=== PATIENT | female | born 1995 | race Hispanic/Latino ===

== ENCOUNTER 2020-05-22 03:57 | Inpatient (IN) | payer BC, OTHER ==
[2020-05-21 16:07] LABS: Absolute Lymphocytes (CBC) 1.7 K/uL (0.7-4.9); Basophils % 0.4 % (0-1.3); Hematocrit 27.3 % (36.0-45.0); Lymphocytes % 20.1 % (15.3-44.8); MPV 10.2 fL (7.6-11.3); RBC Red Blood Cell Count 4.26 M/uL (3.86-4.86)
[2020-05-21 16:10] LABS: Protime INR 0.96
[2020-05-21 18:39] LABS: Blood Morphology Comment NOTED (NOT SEEN); Hypochromasia 1+; Platelet Estimate ADEQ; Polychromasia SLIGHT; White Blood Cell Scan OK (OK)
[2020-05-21 18:40] LABS: Urine Appearance CLEAR; Urine Bilirubin NEGATIVE (NEG); Urine Blood NEGATIVE (NEG); Urine Color YELLOW; Urine Glucose NEGATIVE (NEG); Urine Protein NEGATIVE (NEG); Urine Specific Gravity <=1.005 (1.005-1.030); Urine Urobilinogen 0.2 mg/dL (0.2-1.0)
[2020-05-21 19:21] LABS: Urine Microscopic Reflex ORDER UMIC
[2020-05-21 20:23] LABS: Urine Bacteria 20-50 /HPF (<20); Urine RBC <5 /HPF (NONE SEEN)
[~2020-05-22 03:57] MED LIST: CEFAZOLIN/SWI 2gm 2 GM/20 ML SYR IVP SCH
--- OUTSIDE RECORDS SUMMARY | 2020-05-22 03:59 | XMS REPORT | Continuity of Care Document ---
:1995 Author Organization [facility] Care Team Providers Name Role Phone [facility] Unavailable Un available Problems Problem Status Onset Classification Date Comments Sourc e Date Reported CONTRACTIONS Active 10/24/19 The [facility] [place] Discharge 10/24/19 10/30/2015 The Diagnosis: [address] [place] [id number] Abdominal pain affecting Discharge 10/24/19 10/30/2015 The Diagnosis: 16 [place] Ruptured, membranes, premature CHILD Active 01/30/20 The [facility] [place] Patient Resolved 01/24/20 Problem 10/30/2015 The currently 15 [place] (finding) Medications Medication Details Route Status Patient Ordering Order Source Instructions Provider Date Ascorbic Acid 120 1 tab, PO, Active The MG / Docusate Daily, # [address] [facility] nds Sodium 50 MG / tab, 0 Folic Acid 1 MG / Refill(s) Iron Carbonyl 90 MG / Vitamin B 12 0.012 MG Oral Tablet [Ferralet 90] Acetaminophen 300 1 tab, PO, Active The MG / Codeine Q4H, PRN Pain, 2015 [place] Phosphate 30 MG X 7 day, # 42 Oral Tablet tab, 0 [Tylenol with Refill(s) Codeine #3] ibuprofen 800 mg 800 mg = 1 Active T he oral tablet tab, PO, Q8H, 2015 [facility] nds PRN Pain, Take with food, # 60 tab, 1 Refill(s) Docusate Sodium Notes: (Same No Longer 10/25/ H The 100 MG Oral as: Colace) Active 2015 [place] Capsule [Colace] (Do Not Crush) 1 tab, Route: No Longer The Multivitamins oral PO, Drug Form: Active 2015 [place] tablet TAB, Dosing Weight 102.273, kg, Daily, Start date: 10/25/15 9:00:00 CDT, Duration: 30 day, Stop date: 11/23/15 9:00:00 CDT Gentamicin Sulfate Notes: TIME Inactive The (LONGTERM) CRITICAL 2015 [place] MEDICATION (Same as Garamycin) Ampicillin Notes: (Same Inactive The as: [place]) [place] MEDICATION WASTE Product Size: 2000 mg Product Wasted: ___ mg Gentamicin Sulfate Notes: TIME Inactive The (LONGTERM) CRITICAL 2015 [place] MEDICATION (Same as Garamycin) fentaNYL (ANES) Route: IV, Inactive T he Drug form: [place] INJ, ONCE, Stop date: 10/25/15 0:12:00 CDT Pitocin (ANES) Route: IV, Inactive Th e Drug form: 2015 [place] SOLN, ONCE, Stop date: 10/25/15 0:12:00 CDT morphine Sulfate Route: Inactive The (ANES) EPIDURAL, Drug 2015 form: INJ, ONCE, Stop date: 10/25/15 0:08:00 CDT bupivacaine (ANES) Route: Inactive T he EPIDURAL, Drug 2015 Form: INJ, ONCE, Stop date: 10/25/15 0:08:00 CDT ondansetron (ANES) Route: IV, Inactive H The Drug form: [place] INJ, ONCE, Stop date: 10/25/15 0:08:00 CDT succinylcholine Route: IV, Inactive T he (ANES) Drug form: [place] INJ, ONCE, Stop date: 10/25/15 0:03:00 CDT fentaNYL (ANES) Route: Inactive The EPIDURAL, Drug 2015 form: INJ, ONCE, Stop date: 10/25/15 0:03:00 CDT propofol (ANES) Route: IV, Inactive T he Drug form: [place] INJ, ONCE, Stop date: 10/25/15 0:03:00 CDT lidocaine (ANES) Route: IV, Inactive The Drug form: 2015 [place] INJ, ONCE, Stop date: 10/25/15 0:03:00 CDT Ibuprofen Notes: (Same No Longer The as: Abida) Active [place] "Do Not Crush" Take with food. 0.5 ML Bordetella Notes: (Tdap ) No Longer 10/24 The pertussis For Adolecent Active 2015 [place] filamentous and Adult use hemagglutinin For IM Use. vaccine, Same as: inactivated 0.01 Adacel (Tdap) MG/ML / Bordetella pertussis fimbriae 2/3 vaccine, inactivated 0.01 MG/ML / Bordetella pertussis pertactin vaccine, inactivated 0.006 MG/ML / Bordetella pertussis toxoid vacci Naloxone Notes: Same as Inactive The Narcan 2015 [place] Diphenhydramine Notes: (Same No Longer 10/24/ H The as: Benadryl) Active 2015 [place] Promethazine 6.25 mg, 25 No Longer Th e mL, Route: Active 2015 [place] IVPB, Drug form: SOLN, Q6H, Dosing Weight 102.273, kg, PRN Nausea & Vomiting, Start date: 10/24/15 23:57:00 CDT, Duration: 24 hr, Stop date: 10/25/15 23:56:00 CDT Ondansetron Notes: (Same No Longer Th e as: Zofran) Active 2015 [place] MEDICATION WASTE Product Size: 4 mg Product Wasted: ___ mg Oxycodone Notes: (Same No Longer The Hydrochloride 5 MG as: Active 2015 [facility] and Oral Tablet Roxicodone) Nalbuphine Notes: (Same No Longer The As: Nubain) Active 2015 [place] Meperidine Notes: (Same No Longer The as: Demerol) Active 2015 [place] "Use Precaution in Elderly, Seizure disorders, and Renal impairment&quo t; Acetaminophen Notes: Max No Longer Th e acetaminophen Active 2015 [place] 4000 mg/day (4 gm/day). (Same as: Tylenol Extra Strength) Ketorolac 4 days No Longer The MEDICATION Active 2015 [place] WASTE Product Size: 30 mg Product Wasted: ___ mg Acetaminophen 325 Notes: (Same No Longer The MG / Hydrocodone as: [place] Active 2015 [facility] Bitartrate 5 MG 325/5) Do not Oral Tablet exceed 4gm/day of acetaminophen. Acetaminophen 325 Notes: Do not No Longer The MG / Hydrocodone exceed 4gm/day Active 2015 [place] Bitartrate 10 MG of Oral Tablet acetaminophen. (Same as: [place] 325/10) Lactated Ringers 1,000 mL, No Longer The IV 1,000 mL Rate: 100 Active 2015 [place] ml/hr, Infuse over: 10 hr, Route: IV, Dosing Weight 102.273 kg, Total Volume: 1,000, Start date: 10/24/15 23:46:00 CDT, Duration: 30 day, Stop date: 11/23/15 23:45:00 CDT Acetaminophen Notes: Do not No Longer The exceed 4 Active 2015 [place] gm/day. (Same as: Tylenol) Simethicone Notes: (Same No Longer Th e as: Mylicon) Active 2015 [place] zolpidem Notes: (Same No Longer The As: Ambien) Active 2015 [place] Benzocaine / Notes: Same No Longer Th e Menthol as: Cepacol Active 2015 [place] Oxytocin 0.06 Notes: Pitocin No Longer 10/24/ H The UNT/ML Injectable 30 units in LR Active 2015 [place] Solution 500 mL lanolin topical 1 appl, Route: No Longer The cream TOP, PRN, Drug Active 2015 [place] form: OINT, PRN Other -See Comment, Start date: 10/24/15 23:46:00 CDT, Duration: 30 day, Stop date: 11/23/15 23:45:00 CDT Bisacodyl Notes: (Same No Longer The As: Dulcolax, Active 2015 [place] Bisco-Lax) lidocaine (ANES) Route: Inactive The EPIDURAL, Drug 2015 [place] form: INJ, ONCE, Stop date: 10/24/15 23:43:00 CDT ceFAZolin (ANES) Route: IV, Inactive The Drug form: [place] INJ, ONCE, Stop date: 10/24/15 23:43:00 CDT acetaminophen Route: IV, No Longer Th e (ANES) (ANES) Drug form: Active 2015 [place], Start date: 10/24/15 23:31:00 CDT, Stop date: 10/25/15 0:31:00 CDT Lactated Ringers Route: IV, No Longer The Injection IV Total Volume: Active 2015 Tonenadine ands (ANES) (ANES) 400, Start date: 10/24/15 23:12:00 CDT, Stop date: 10/25/15 0:12:00 CDT Cefazolin Notes: Same Inactive The as: Ancef 2015 [place] Morphine Notes: (Same No Longer The as:MORPhine Active 2015 [place] Sulfate) Ondansetron Notes: (Same No Longer Th e as: Zofran) Active 2015 [place] MEDICATION WASTE Product Size: 4 mg Product Wasted: ___ mg Metoclopramide Notes: (Same No Longer The as: Reglan) Active 2015 [place] Penicillin G 2,500,000 Inactive The unit, 50 mL, 2015 [place] Route: IVPB, Drug form: INJ, ABXQ4H, Dosing Weight 102.273, kg, Start date: 10/24/15 13:00:00 CDT Penicillin G Notes: (Same Inactive Th e Potassium [id number] as: Pfizerpen) 2015 [place] UNT/ML Injectable Solution MEDICATION WASTE Product Size: 5,000,000 unit Product Wasted: ___ unit Carboprost Notes: (Same No Longer The As: Hemabate) Active 2015 [place] Citric Acid / Notes: (Same No Longer The sodium citrate As: Bicitra) Active 2015 [facility] Methylergonovine Notes: (Same No Longer The as:Methergine) Active 2015 [place] Misoprostol Notes: (Same No Longer Th e as:Cytotec) Active 2015 [place] Take with food Famotidine Notes: (Same Inactive The as: Pepcid) [place] Can be dilute in 5-10cc NS IVP: Slow IV push over at least 2 minutes. 1 oral 1 cap, PO, Active Th e capsule Daily, 0 2015 [place] Refill(s) Phenylephrine Notes: Same No Longer T he as: Active 2015 [place] Dimitry-Synephrine Ephedrine Notes: (Same No Longer The as: ePHEDrine Active 2015 [place] Sulfate) Hydromorphone Notes: (Same No Longer The as: Active 2015 [place] Naropin-Dilaud id) Oxytocin 0.06 Notes: Pitocin Inactive The UNT/ML Injectable 30 units in LR 2015 [place] Solution 500 mL Terbutaline Notes: DO No Longer The NOT USE IN Active 2015 [place] PEAN[place] AREA (Same As: Brethine) Lidocaine Notes: (Same No Longer The Hydrochloride 10 as: Xylocaine) Active 2015 [place] MG/ML Injectable Solution Meperidine Notes: (Same No Longer The as: Demerol) Active 2015 [place] "Use Precaution in Elderly, Seizure disorders, and Renal impairment&quo t; Ondansetron Notes: (Same No Longer Th e as: Zofran) Active 2015 [place] MEDICATION WASTE Product Size: 4 mg Product Wasted: ___ mg Nalbuphine Notes: (Same No Longer The As: Nubain) Active 2015 [place] Oxytocin 0.06 Notes: Pitocin No Longer 10/23/ H The UNT/ML Injectable 30 units in LR Active 2015 [place] Solution 500 mL Calcium Chloride 1,000 mL, No Longer The 0.0014 MEQ/ML / 1,000 ml/hr, Active 2015 [place] Potassium Chloride Infuse Over: 1 0.004 MEQ/ML / hr, Route: IV, Sodium Chloride 1,000, Drug 0.103 MEQ/ML / form: INJ, Sodium Lactate ONCE, Dosing 0.028 MEQ/ML Weight 102.273 Injectable kg, Start Solution date: 10/24/15 8:10:00 CDT, Stop date: 10/24/15 8:10:00 CDT, Bolus for regional anesthesia per unit protocol Lactated Ringers 1,000 mL, No Longer The IV 1,000 mL Rate: 125 Active 2015 [place] ml/hr, Infuse over: 8 hr, Route: IV, Dosing Weight 102.273 kg, Total Volume: 1,000, Start date: 10/24/15 8:10:00 CDT, Duration: 30 day, Stop date: 11/23/15 8:09:00 CDT Allergies, Adverse Reactions, Alerts Substance Category Reaction Severity Reaction Status Date Comments S ource type Reported Latex Assertion Drug Active The allergy [place] Immunizations No Data Provided for This Section Results Order Name Results Value Reference Date Interpretation Comments Randee rce Range HEMATOLOGY Hct 24.8 36.0 - 10/24 The 48.0 [place] HEMATOLOGY Hgb 7.7 12.0 - 10/24 The [place] URINE AND UA <=1.0 0.1 - 1.0 10/23 The STOOL Urobilinogen mg/dL /2015 [place] URINE AND UA Sq Epi Many /LPF Few /LPF 10/23 The STOOL /[place] URINE AND UA WBC 27 0 - 5 10/23 The STOOL /2015 [place] URINE AND UA RBC >182 0 - 2 10/23 The STOOL /[place] URINE AND UA Bili Negative Negative 10/23 The STOOL *NA* /2015 [place] (10/24/15 8:50 AM) URINE AND UA Leuk Est Large Negative 10/23 The STOOL *ABN* /2015 [place] (10/24/15 8:50 AM) URINE AND UA Nitrite Negative Negative 10/23 The STOOL (10/24/15 8:50 AM) /2015 [facility] ds URINE AND UA Blood Large Negative 10/23 The STOOL *ABN* /2015 [place] (10/24/15 8:50 AM) URINE AND UA Mucus Few /LPF None Seen 10/23 The STOOL /LPF /2015 [place] URINE AND UA [place] Yeast Few /HPF None Seen 10/23 The STOOL /HPF /2015 [place] URINE AND UA Protein 100 mg/dL Negative 10/23 The STOOL mg/dL /[place] URINE AND UA pH 6.5 5.0 - 8.0 10/23 The STOOL /[place] URINE AND UA Ketones Negative Negative 10/23 The STOOL mg/dL mg/dL /2015 [place] URINE AND UA Glucose Negative Negative 10/23 The STOOL mg/dL mg/dL /2015 [place] URINE AND UA Turbidity Slight Clear 10/23 The STOOL *ABN* /2015 [place] (10/24/15 8:50 AM) URINE AND UA Color Red Yellow 10/23 The STOOL *ABN* /2015 [place] (10/24/15 8:50 AM) URINE AND UA Spec Grav 1.019 <=1.030 10/23 The STOOL /2015 [place] BLOOD BANK ABO/Rh A POS 10/23 The RESULTS /2015 [place] BLOOD BANK Antibody Scrn Negative 10/23 The RESULTS (10/24/15 8:33 AM) [facility] BLOOD BANK Rhig Reqd See Note 1 10/23 Result The RESULTS (10/24/15 8:33 AM) Comment: [place] 10/24/2015 10:33 CEPRASEK<b r/>This patient is not a candidate for Rh(O)D immune globulin. CHEM PANEL Uric Acid 4.4 2.5 - 7.0 10/23 The [place] CHEM PANEL AST 28 0 - 37 10/23 The [place] CHEM PANEL ALT 14 0 - 65 10/23 The [place] HEMATOLOGY MCHC 31.6 32.0 - 10/23 The 36.0 [place] HEMATOLOGY MCH 22.9 27.0 - 10/23 The 31.0 [place] HEMATOLOGY MCV 72.5 80.0 - 10/23 The 98.0 [place] HEMATOLOGY MPV 11.9 7.4 - 10.4 10/23 The [place] HEMATOLOGY Platelet 128 133 - 450 10/23 The [place] HEMATOLOGY RDW 20.6 11.5 - 10/23 The 14.5 [place] HEMATOLOGY Hct 33.3 36.0 - 10/23 The 48.0 [place] HEMATOLOGY Hgb 10.5 12.0 - 10/23 The 16.0 [place] HEMATOLOGY RBC 4.59 4.20 - 0607 The 5.40 /2015 [place] HEMATOLOGY WBC 13.3 3.7 - 10.4 10/23 The [place] HEMATOLOGY Basophils 0.2 0.0 - 1.0 10/23 The [place] HEMATOLOGY Eosinophils 0.2 0.0 - 4.0 10/23 The [place] HEMATOLOGY Monocytes 4.2 2.0 - 12.0 10/23 The [place] HEMATOLOGY Lymphocytes 10.8 20.0 - 10/23 The 40.0 [place] HEMATOLOGY Monocytes # 0.6 0.0 - 0.8 10/23 The [place] HEMATOLOGY Lymphocytes # 1.4 1.0 - 5.5 10/23 Th e /2015 [place] HEMATOLOGY Segs-Bands # 11.2 1.5 - 8.1 10/23 The [place] HEMATOLOGY Segs 84.6 45.0 - 10/23 The 75.0 [place] HEMATOLOGY Microcyte 2+ None Seen 10/23 The *ABN* /2015 [place] (10/24/15 8:33 AM) IMMUNOLOGY Hep Bs Ag Negative Negative 10/23 The *NA* [place] (10/24/15 8:33 AM) IMMUNOLOGY HIV. Negative Negative 10/23 The *NA* /2015 [place] (10/24/15 8:33 AM) IMMUNOLOGY Treponemal Scr Non Reactive Non 10/23 M H The *NA* Reactive /2015 [place] (10/24/15 8:33 AM) BODY FLUIDS Amnisure ROM Negative Negative 10/23 [facility] e (10/24/15 8:05 AM) [facility] ds Pathology Reports No Data Provided for This Section Diagnostic Reports No Data Provided for This Section Consultation Notes No Data Provided for This Section Discharge Summaries No Data Provided for This Section History and Physicals No Data Provided for This Section Vital Signs Vital Sign Value Date Comments Source Heart Rate 92 10/27/2015 The [place] Respitory Rate 16 10/27/[address] [facility] nds Temperature Oral (F) 98.0 F 10/27/2015 [facility] Systolic (mm Hg) 120 10/27/2015 [facility] Diastolic (mm Hg) 75 10/27/2015 [facility] Temperature Oral (F) 98.3 F 10/27/2015 [facility] Systolic (mm Hg) 131 10/27/2015 [facility] Diastolic (mm Hg) 75 10/27/2015 The [facility] Heart Rate 102 10/27/2015 The [place] Respitory Rate 18 10/27/[address] [facility] nds Respitory Rate 16 10/26/[address] [facility] nds Systolic (mm Hg) 78 10/26/2015 The [facility] Heart Rate 89 10/26/2015 The [place] Temperature Oral (F) 98.0 F 10/26/2015 [place] Diastolic (mm Hg) 78 10/26/2015 The [facility] BMI Calculated 39.94 10/24/[address] [facility] nds Weight 102.273 10/24/2015 The [place] Height 160.02 cm 10/24/2015 The [place] Encounters Location Location Encounter Encounter Reason Attending ADM DC Stat us Source Details Type Number For Provider Date Date Visit [facility] [id number] T[place] 10/23 10/26 The Manoj Ferreren /2015 [facility] Procedures No Data Provided for This Section Assessment and Plan Assessment and Plan Date Source Extracted from:Title: Progress Note * 10/27/2015 [facility] Author: Maru Rivera NP Date: 10/26/15 Impression and Plan The patient was seen and examined by me with the resident/[employer]/PA and I agree with the History/Exam documented. Routine care. D/c home tomorrow. F/u in office in 4 weeks an d prn. Plan of Care No Data Provided for This Section Social History Social History Date Source Social History TypeResponse 10/24/2015 [facility] [place] Smoking Status Never smoker; Ready to change: No; Danisha rns about tobacco use in household: No; Exposure to Tobacco Smoke None; Cigarette Smoking Last 365 Days No; Reg Smoking Cessation Counseling No Family History No Data Provided for This Section Advance Directives No Data Provided for This Section Functional Status No Data Provided for This Section
--- OUTSIDE RECORDS SUMMARY | 2020-05-22 04:00 | XMS REPORT | Continuity of Care Document ---
:1995 Author Organization [facility] t Address [address] [place] [address] Care Team Providers Name Role Phone Radiology Attending Clinician Unavailable Maricel Holt Attending Clinician Maricel Holt Admitting Clinician Problems Condition Condition Condition Status Onset Resolution Last Treating Co mments Source Name Details Category Date Date Treatment Clinician Date CONTRACTIO Diagnosis Active 2015-10-24 Memoria NS 10-23 07:12:00 l 07:00: Manoj CONTRACTIO 00 NS Active 6 [facility] CHILD Diagnosis Active 2015-08-01 Mem oria 01-29 17:26:00 l CHILD 00:00: Manoj 00 Active 01/29/2015 [facility] Discharge Problem 2015-10-30 2015-10-30 Memoria Diagnosis: 10-23 01:43:29 01:43:29 l Abdominal 05:00: Hamer pain Discharge 00 affecting Diagnosis: Abdominal pain affecting 10/24/2015 10/30/2015 [facility] Discharge Problem 2015-10-30 2015-10-30 Memoria Diagnosis: 10-23 01:43:29 01:43:29 l Ruptured, 05:00: Manoj membranes, Discharge 00 premature Diagnosis: Ruptured, membranes, premature 10/24/2015 10/30/2015 [facility] History of Past Illness Condition Condition Condition Status Onset Resolution Last Treating Co mments Source Name Details Category Date Date Treatment Clinician Date Patient Problem Resolve 2015-10-302015-10-30 Memoria currently d 9 01:43:29 01:43:29 l Patient 00:00: Vani nn (finding) currently 00 (finding) Resolved 01/23/2015 Problem 10/30/2015 [facility] Allergies, Adverse Reactions, Alerts Allergy Allergy Status Severity Reaction(s) Onset Inactive Treating Comm ents Source Name Type Date Date Clinician Latex Latex Active Marlon Aranda Social History Smoking Status Start Date Stop Date Source Social History [facility] Medications Ordered Filled Start Stop Current Ordering Indication Dosage Frequency Signature Comments Components Source Medication Medication Date Date Medication? Clinician (SIG) Name Name Ascorbic Yes 1 tab, PO, Mem oria Acid 120 MG 6- Daily, # l / Docusate 17:57: 30 tab, 0 He rmann Sodium 50 00 Refill(s) MG / Folic Acid 1 MG / Iron Carbonyl 90 MG / Vitamin B 12 0.012 MG Oral Tablet [Ferralet 90] Acetaminoph Yes 1 tab, PO, Memoria en 300 MG / 10-25 Q4H, PRN l Codeine 17:55: Pain, X 7 Vani nn Phosphate 00 day, # 42 30 MG Oral tab, 0 Tablet Refill(s) [Tylenol with Codeine #3] ibuprofen Yes 800 mg = 1 Me moria 800 mg oral 09 tab, PO, l tablet 17:55: Q8H, PRN Manoj 00 Pain, Take with food, # 60 tab, 1 Refill(s) Docusate No Notes: Memoria Sodium 100 6-09 (Same as: l MG Oral 03:29: Colace) Hamer Capsule 00 (Do Not [Colace] Crush) No 1 tab, Memoria Multivitami 10-24 Route: PO, l ns oral 14:00: Drug Form: Herm brian tablet 00 TAB, Dosing Weight 102.273, kg, Daily, Start date: 10/25/15 9:00:00 CDT, Duration: 30 day, Stop date: 11/23/15 9:00:00 CDT Gentamicin No Notes: Memor ia Sulfate 6-08 TIME l (FCI) 14:00: CRITICAL Hamer 00 MEDICATION (Same as Garamycin) Ampicillin No Notes: Memor ia 6-08 (Same as: l 06:00: [place]) MEDICATION WASTE Product Size: 2000 mg Product Wasted: ___ mg Gentamicin No Notes: Memor ia Sulfate - TIME l (FCI) 05:31: CRITICAL Hamer 00 MEDICATION (Same as Garamycin) fentaNYL No Route: IV, Mem oria (ANES) 10-24 Drug form: l 05:12: INJ, ONCE, Stop date: 10/25/15 0:12:00 CDT Pitocin No Route: IV, Fab lilian (ANES) 10-24 Drug form: l 05:12: SOLN, Hamer ONCE, Stop date: 10/25/15 0:12:00 CDT morphine No Route: Memoria Sulfate 10-24 EPIDURAL, l (ANES) 05:08: Drug form: Vani nn 00 INJ, ONCE, Stop date: 10/25/15 0:08:00 CDT bupivacaine No Route: Fab lilian (ANES) 10-24 EPIDURAL, l 05:08: Drug Form: Manoj 00 INJ, ONCE, Stop date: 10/25/15 0:08:00 CDT ondansetron No Route: IV, Memoria (ANES) 10-24 Drug form: l 05:08: INJ, ONCE, Stop date: 10/25/15 0:08:00 CDT succinylcho No Route: IV, Memoria line (ANES) 10-24 Drug form: l 05:03: INJ, ONCE, Stop date: 10/25/15 0:03:00 CDT fentaNYL No Route: Memoria (ANES) 08 EPIDURAL, l 05:03: Drug form: Manoj 00 INJ, ONCE, Stop date: 10/25/15 0:03:00 CDT propofol No Route: IV, Mem oria (ANES) 10-24 Drug form: l 05:03: INJ, ONCE, Manoj 00 Stop date: 10/25/15 0:03:00 CDT lidocaine No Route: IV, Me moria (ANES) 10-24 Drug form: l 05:03: INJ, ONCE, Stop date: 10/25/15 0:03:00 CDT Ibuprofen No Notes: Memori a 6-08 (Same as: l 05:00: Motrin) "Do Not Crush" Take with food. 0.5 ML No Notes: Memoria Bordetella 10-24 (Tdap ) l pertussis 05:00: For Manoj Adolecent hemagglutin and Adult in vaccine, use For IM inactivated Use. Same 0.01 MG/ML as: Adacel / (Tdap) Bordetella pertussis fimbriae 2/3 vaccine, inactivated 0.01 MG/ML / Bordetella pertussis pertactin vaccine, inactivated 0.006 MG/ML / Bordetella pertussis toxoid vacci Naloxone No Notes: Memoria 6-08 Same as l 05:00: Narcan Diphenhydra No Notes: Fab lilian mine 08 (Same as: l 04:57: Benadryl) Promethazin No 6.25 mg, Me moria e 08 25 mL, l 04:57: Route: IVPB, Drug form: SOLN, Q6H, Dosing Weight 102.273, kg, PRN Nausea & Vomiting, Start date: 10/24/15 23:57:00 CDT, Duration: 24 hr, Stop date: 10/25/15 23:56:00 CDT Ondansetron No Notes: Fab lilian 08 (Same as: l 04:57: Zofran) MEDICATION WASTE Product Size: 4 mg Product Wasted: ___ mg Oxycodone No Notes: Memori a Hydrochlori 10-24 (Same as: l de 5 MG 04:57: Roxicodone Oral Tablet ) Nalbuphine No Notes: Memor ia 08 (Same As: l 04:57: Nubain) Meperidine No Notes: Memor ia 08 (Same as: l 04:57: Demerol) "Use Precaution in Elderly, Seizure disorders, and Renal impairment " Acetaminoph No Notes: Max Memoria en 10-24 acetaminop l 04:57: hen 4000 Hamer 00 mg/day (4 gm/day). (Same as: Tylenol Extra Strength) Ketorolac No 4 days Memor ia 10-24 l 04:57: MEDICATION Manoj WASTE Product Size: 30 mg Product Wasted: ___ mg Acetaminoph No Notes: Fab lilian en 325 MG / 10-24 (Same as: l Hydrocodone 04:46: [place] Vani nn Bitartrate 00 325/5) Do 5 MG Oral not exceed Tablet 4gm/day of acetaminop hen. Acetaminoph No Notes: Do M emoria en 325 MG / 10-24 not exceed l Hydrocodone 04:46: 4gm/day of Manoj Bitartrate 00 acetaminop 10 MG Oral hen. Tablet (Same as: [place] 325/10) Lactated No 1,000 mL, Fab lilian Ringers IV 10-24 Rate: 100 l 1,000 mL 04:46: ml/hr, Hamer Infuse over: 10 hr, Route: IV, Dosing Weight 102.273 kg, Total Volume: 1,000, Start date: 10/24/15 23:46:00 CDT, Duration: 30 day, Stop date: 11/23/15 23:45:00 CDT Acetaminoph No Notes: Do M emoria en 08 not exceed l 04:46: 4 gm/day. Manoj 00 (Same as: Tylenol) Simethicone No Notes: Fab lilian 10-24 (Same as: l 04:46: Mylicon) Manoj 00 zolpidem No Notes: Memoria 10-24 (Same As: l 04:46: Ambien) Hamer 00 Benzocaine No Notes: Memor ia / Menthol 10-24 Same as: l 04:46: Cepacol Manoj Oxytocin No Notes: Memoria 0.06 UNT/ML 10-24 Pitocin 30 l Injectable 04:46: units in Her collins Solution 00 LR 500 mL lanolin No 1 appl, Memoria topical 10-24 Route: l cream 04:46: TOP, PRN, Hamer 00 Drug form: OINT, PRN Other -See Comment, Start date: 10/24/15 23:46:00 CDT, Duration: 30 day, Stop date: 11/23/15 23:45:00 CDT Bisacodyl No Notes: Memori a 10-24 (Same As: l 04:46: Dulcolax, Bisco-Lax) lidocaine No Route: Memori a (ANES) 10-24 EPIDURAL, l 04:43: Drug form: Hamer 00 INJ, ONCE, Stop date: 10/24/15 23:43:00 CDT ceFAZolin No Route: IV, Me moria (ANES) 10-24 Drug form: l 04:43: INJ, ONCE, Hamer 00 Stop date: 10/24/15 23:43:00 CDT acetaminoph No Route: IV, Memoria en (ANES) 10-24 Drug form: l (ANES) 04:31: INJ, Start Vani nn 00 date: 10/24/15 23:31:00 CDT, Stop date: 10/25/15 0:31:00 CDT Lactated No Route: IV, Mem oria Ringers 10-24 Total l Injection 04:12: Volume: Vani nn IV (ANES) 00 400, Start (ANES) date: 10/24/15 23:12:00 CDT, Stop date: 10/25/15 0:12:00 CDT Cefazolin No Notes: Memori a 10-24 Same as: l 03:30: Ancef Manoj 00 Morphine No Notes: Memoria 10-24 (Same l 03:28: as:MORPhin e Sulfate) Ondansetron No Notes: Fab lilian 10-24 (Same as: l 03:28: Zofran) MEDICATION WASTE Product Size: 4 mg Product Wasted: ___ mg Metoclopram No Notes: Fab lilian dutch 10-24 (Same as: l 03:28: Reglan) Penicillin No 2,500,000 Me moria G -07 unit, 50 l 18:00: mL, Route: Hamer 00 IVPB, Drug form: INJ, ABXQ4H, Dosing Weight 102.273, kg, Start date: 10/24/15 13:00:00 CDT Penicillin No Notes: Memor ia G Potassium 6-07 (Same as: l [id number] 14:00: Pfizerpen) Herm brian UNT/ML 00 Injectable MEDICATION Solution WASTE Product Size: 5,000,000 unit Product Wasted: ___ unit Carboprost No Notes: Memor ia 6-07 (Same As: l 14:00: Hemabate) Hamer 00 Citric Acid No Notes: Fab lilian / sodium 6 (Same As: l citrate 14:00: Bicitra) Janes n 00 Methylergon No Notes: Fab lilian ovine 6- (Same l 14:00: as:Metherg Hamer 00 ine) Misoprostol No Notes: Fab lilian - (Same l 14:00: as:Cytotec Manoj 00 ) Take with food Famotidine No Notes: Memor ia 6-07 (Same as: l 14:00: Pepcid) Manoj 00 Can be dilute in 5-10cc NS IVP: Slow IV push over at least 2 minutes. 1 Yes 1 cap, PO, M emoria oral 07 Daily, 0 l capsule 13:33: Refill(s) Vani nn 00 Phenylephri No Notes: Fab lilian ne 10-23 Same as: l 13:23: Dimitry-Syneph Manoj 00 rine Ephedrine No Notes: Memori a 6-07 (Same as: l 13:23: ePHEDrine Manoj 00 Sulfate) Hydromorpho No Notes: Fab lilian ne 07 (Same as: l 13:23: Naropin-Di Hamer 00 laudid) Oxytocin No Notes: Memoria 0.06 UNT/ML 10-23 Pitocin 30 l Injectable 13:15: units in Her collins Solution 00 LR 500 mL Terbutaline No Notes: Fab lilian 6- DO NOT l 13:10: USE IN Manoj 00 KLYSTROM TUBE TESTER AREA (Same As: Brethine) Lidocaine No Notes: Memori a Hydrochlori 10-23 (Same as: l de 10 MG/ML 13:10: Xylocaine) Manoj Injectable 00 Solution Meperidine No Notes: Memor ia 10-23 (Same as: l 13:10: Demerol) "Use Precaution in Elderly, Seizure disorders, and Renal impairment " Ondansetron No Notes: Fab lilian 10-23 (Same as: l 13:10: Zofran) MEDICATION WASTE Product Size: 4 mg Product Wasted: ___ mg Nalbuphine No Notes: Memor ia 10-23 (Same As: l 13:10: Nubain) Manoj 00 Oxytocin No Notes: Memoria 0.06 UNT/ML 10-23 Pitocin 30 l Injectable 13:10: units in Her collins Solution 00 LR 500 mL Calcium No 1,000 mL, Memor ia Chloride 10-23 1,000 l 0.0014 13:10: ml/hr, Hamer MEQ/ML / 00 Infuse Potassium Over: 1 Chloride hr, Route: 0.004 IV, 1,000, MEQ/ML / Drug form: Sodium INJ, ONCE, Chloride Dosing 0.103 Weight MEQ/ML / 102.273 Sodium kg, Start Lactate date: 0.028 10/24/15 MEQ/ML 8:10:00 Injectable CDT, Stop Solution date: 10/24/15 8:10:00 CDT, Bolus for regional anesthesia per unit protocol Lactated No 1,000 mL, Fab lilian Ringers IV 10-23 Rate: 125 l 1,000 mL 13:10: ml/hr, Infuse over: 8 hr, Route: IV, Dosing Weight 102.273 kg, Total Volume: 1,000, Start date: 10/24/15 8:10:00 CDT, Duration: 30 day, Stop date: 11/23/15 8:09:00 CDT Vital Signs Vital Name Observation Time Observation Value Comments Source Heart Rate 2015-10-27 13:00:00 [facility] Manoj Respitory Rate 2015-10-27 13:00:00 [facility] Temperature Oral (F) 2015-10-27 13:00:00 98.0 F [facility] Manoj Systolic (mm Hg) 2015-10-27 13:00:00 Fab rial Hamer Diastolic (mm Hg) 2015-10-27 13:00:00 Mem orial Manoj Temperature Oral (F) 2015-10-27 05:00:00 98.3 F [facility] Manoj Systolic (mm Hg) 2015-10-27 05:00:00 Fab rial Manoj Diastolic (mm Hg) 2015-10-27 05:00:00 Mem orial Hamer Heart Rate 2015-10-27 05:00:00 [facility] Manoj Respitory Rate 2015-10-27 05:00:00 Memori al Manoj Respitory Rate 2015-10-26 21:00:00 Memori al Manoj Systolic (mm Hg) 2015-10-26 21:00:00 Fab rial Hamer Heart Rate 2015-10-26 21:00:00 [facility] Hamer Temperature Oral (F) 2015-10-26 21:00:00 98.0 F [facility] Hamer Diastolic (mm Hg) 2015-10-26 12:30:00 Mem orial Hamer BMI Calculated 2015-10-24 12:17:00 Memori al Manoj Weight 2015-10-24 12:17:00 [facility] Ham[facility] Height 2015-10-24 12:17:00 160.02 cm [facility] Hamer Procedures This patient has no known procedures. Encounters Start End Encounter Admission Attending Care Care Encounter Source Date/Time Date/Time Type Type Clinicians Facility Department ID 2020 2020 [facility] Radiology [facility] [id number] 13:15:30 23:59:00 Encounter [place] [id number] [place] [id number] [place] [id number] 2015-10-24 2015-10-27 Outpatient JOSE Holt [id number] 07:06:00 18:30:00 Tonia Connelly Results Test Description Test Time Test Comments Results Result Sourc e Comments HEMATOLOGY 2015-10-25 24.8 [facility] 12:03:00 Hamer HEMATOLOGY 2015-10-25 7.7 [facility] 12:03:00 Hamer URINE AND STOOL 2015-10-24 27 [facility] 13:50:00 Hamer URINE AND STOOL 2015-10-24 >182 [facility] 13:50:00 Manoj URINE AND STOOL 2015-10-24 Negative [facility] 13:50:00 *NA*(10/24/15 Manoj 8:50 AM) URINE AND STOOL 2015-10-24 [facility] 13:50:00 *ABN*(10/24/15 Hamer 8:50 AM) URINE AND STOOL 2015-10-24 Negative [facility] 13:50:00 (10/24/15 8:50 Manoj AM) URINE AND STOOL 2015-10-24 Large [facility] 13:50:00 *ABN*(10/24/15 Manoj 8:50 AM) URINE AND STOOL 2015-10-24 6.5 [facility] 13:50:00 Hamer URINE AND STOOL 2015-10-24 Slight [facility] 13:50:00 *ABN*(10/24/15 Manoj 8:50 AM) URINE AND STOOL 2015-10-24 Red [facility] 13:50:00 *ABN*(10/24/15 Hamer 8:50 AM) URINE AND STOOL 2015-10-24 1.019 [facility] 13:50:00 Hamer BLOOD BANK RESULTS 2015-10-24 Negative Memori al 13:33:00 (10/24/15 8:33 Hamer AM) BLOOD BANK RESULTS 2015-10-24 See Note Memori al 13:33:00 1(10/24/15 8:33 Hamer AM) CHEM PANEL 2015-10-24 4.4 [facility] 13:33:00 Manoj CHEM PANEL 2015-10-24 28 [facility] 13:33:00 Manoj CHEM PANEL 2015-10-24 14 [facility] 13:33:00 Manoj HEMATOLOGY 2015-10-24 31.6 [facility] 13:33:00 Hamer HEMATOLOGY 2015-10-24 13:33:00 Test Item Value Reference Range Interpretation Comme nts MCH (test code = MCH) 22.9 pg 27.0-31.0 [facility] M[id number] 13:33:0072.5[facility] HermannHEMATOLOGY 2015-10-24 13:33:0011.9[facility] UmtuahlSTPDNUEDWH5765-63-64 13:33:34366Qqxirqwk XadwusrHQTWDJGHOU8130-51-76 13:33:0020.6[facility] CnatwchKFEVLFPZMU7367-31-44 13:33:0033.3[facility] DvsradgIWIEHIPSQW2829-65-77 13:33:0010.5[facility] Hamer UUVPTWEBIT7585-88-88 13:33:004.59[facility] DtlhrmkBQZXHTDEOS0326-82-27 13:33:00 13.3[facility] AcpnemeUMRTAYGJYK8451-00-30 13:33:000.2[facility] HermannHEMATOLOGY 2015-10-24 13:33:000.2[facility] RsxvfmpITYEIUXSEO1127-78-59 13:33:004.2[facility] FxcafqyWDQEODWUSB9495-85-14 13:33:0010.8[facility] NvilyhrLTJCZKJJIX0742-04-73 13:33:000.6[facility] RtvzmqbTEBVAVADKX8948-98-14 13:33:001.4[facility] Hamer ATKDVYGWWY6415-15-67 13:33:0011.2[facility] YlnpbtsOFAMSDVDVV5642-25-43 13:33:00 84.6[facility] LixabagUJZDARLGSE4352-80-34 13:33:002+ *ABN*(10/24/15 8:33 AM) [facility] XkeurzmHBFTLKWMQP6331-77-00 13:33:00Negative *NA*(10/24/15 8:33 AM) [facility] [id number] 13:33:00Negative *NA*(10/24/15 8:33 AM) [facility] SikhokbNINSIEVGRU7535-07-83 13:33:00Non Reactive *NA*(10/24/15 8:33 AM) [facility] HermannBODY [id number] 13:05:00Negative (10/24/15 8:05 AM)[facility] Manoj
--- OUTSIDE RECORDS SUMMARY | 2020-05-22 04:00 | XMS REPORT | Summary of Care ---
:1995 Author Organization [facility] Address [address] [place] [address] Care Team Providers Name Role Phone Bob Connors Primary Care Provider Reason for Visit Radiology Services (STAT) Status Reason Specialty Diagnoses / Referred By Referred To Procedures Contact Contact New Request Diagnostic Diagnoses care, subsequent , third trimester Placenta accreta in third trimester Bob Connors Radiology Procedures US PELVIS > 14 WEEKS US PELVIS > 14 WEEKS WITH TRANSVAGINAL B [address] [place] [address] Encounter Details Date Type Department Care Team Description 2020 Hospital Encounter [facility] Radiolog y Arrived [place] [address] [address] [place] [address] Allergies No Known Allergiesdocumented as of this encounter (statuses as of 05/17/2020) Medications Medication Sig Dispensed Refills Start Date End Date Status vitamin w/FA Take 1 Tab by 90 Tab 2 05/09/2015 Active (PRENATABS RX) mouth daily. tabletIndications: High-risk , second trimester ferrous sulfate (IRON, Take 1 Tab by 100 Tab 3 05/10/2015 Active FERROUS SULFATE,) 325 mg mouth 3 (three) (65 mg iron) tablet times daily. ascorbic acid (VITAMIN Take 1 Tab by 0 05/10/2015 Active C) 500 mg tablet mouth 3 (three) times daily. azithromycin (ZITHROMAX) One time po dose 2 Tab 0 05/15/20 15 Active 500 mg tablet documented as of this encounter (statuses as of 05/17/2020) Active Problems Problem Noted Date Anemia of mother in , antepartum 05/10/2015 Chlamydia trachomatis infection of lower genitourinary sites 05/10/2015 Maternal gonorrhea, antepartum 05/10/2015 Overweight (BMI 25.0-29.9) 05/09/2015 Insufficient care 05/09/2015 Vaginal yeast infection 05/09/2015 documented as of this encounter (statuses as of 05/17/2020) Immunizations Name Administration Dates Next Due Influenza Virus Vaccine Quad IM 3+ YRS 05/15/2015 PPD (TB) 05/15/2015 documented as of this encounter Social History Tobacco Use Types Packs/Day Years Used Date Never Smoker Smokeless Tobacco: Never Used Alcohol Use Drinks/Week oz/Week Comments No Sex Assigned at Date Recorded Not on file COVID-19 Exposure Response Date Recorded In the last month, have you been in contact with No / Unsure 2020 11:53 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 documented as of this encounter Last Filed Vital Signs Not on filedocumented in this encounter Plan of Treatment Health Maintenance Due Date Last Done Comments VARICELLA VACCINES (1 of 2 - 1996 2-dose childhood series) HPV VACCINES (1 - 2-dose series) 2006 Depression Screening 2007 DTaP,Tdap,and Td Vaccines (1 - 2014 Tdap) PAP SMEAR 2016 INFLUENZA VACCINE (#1) 2020 05/15/2015 PNEUMOCOCCAL 0-64 YEARS COMBINED Aged Out No longer eligible based on SERIES patient's age to complete this topic documented as of this encounter Procedures Procedure Name Priority Date/Time Associated Diagnosis Comme nts US PELVIS STAT 2020 2:29 PM care, Results for this > 14 WEEKS [place] MACHINIST subsequent procedure are i n , third the results trimester section. Placenta accreta in third trimester documented in this encounter Results US PELVIS > 14 WEEKS (2020 2:29 PM NC MACHINIST) Specimen Impressions Performed At PACS/VR/DOSE 1. Single, live intrauterine gestation with the size c orrelating well with dates. 2. No acute or adverse changes. RL: 1970, for this shift, I can be reach ed at [phone]. Electronically signed by Eric Lewis MD at 0 2:54 PM Narrative Performed At This result has an attachment that is no t available. Ordering Physician: Bob Connors PACS/VR/DOSE History: care, subsequent , third tr imester. Comparison Study: None. Findings: Fetus: Dominguez Presentation: Vertex heart rate: Documented with a regular rate of 13 9 bpm, 4-chambered heart is visible BPD: 9.3 cm with an EGA of 37 weeks 5 days HC: 33.4 cm with an EGA of 38 weeks 2 days AC: 35.8 cm with an EGA of 39 weeks 5 days FL: 7.5 cm with an EGA of 38 weeks 4 days HC/AC: 0.93 Estimated weight: 3658 +/- 535 grams which is wi thin the 76th percentile Computed EGA: 38 weeks 4 days with an EDC of 05/26/2020 which correlates well with the LMP EGA of 39 weeks 1 day with an EDC of 2020 Placental location: Fundal, os clear Amniotic fluid: TRISHA is 9.1 cm gender is reported as female Calvarial shape, lateral ventricles, cerebellum appear unremarkable. Nose/lips, face appear unremarkable. Four-chamber heart appears unremarkable. stomach, kidneys and urinary bladder appea r unremarkable. Three-vessel cord appears unremarkable. Cervical, thoracic and lumbosacral spines appear unrem arkable. Maternal adnexal regions are unremarkable. Remainder n egative. Procedure Note [facility], Radiant Results Inft User - 2019 2:55 PM NC MACHINIST Ordering Physician: Bob Connors History: care, subsequent pregn matilda, third trimester. Comparison Study: None. Findings: Fetus: Dominguez Presentation: Vertex heart rate: Documented with a regu lar rate of 139 bpm, 4-chambered heart is visible BPD: 9.3 cm with an EGA of 37 weeks 5 da ys HC: 33.4 cm with an EGA of 38 weeks 2 da ys AC: 35.8 cm with an EGA of 39 weeks 5 da ys FL: 7.5 cm with an EGA of 38 weeks 4 day s HC/AC: 0.93 Estimated weight: 3658 +/- 535 gra ms which is within the 76th percentile Computed EGA: 38 weeks 4 days with an ED C of 05/26/2020 which correlates well with the LMP EGA of 39 weeks 1 day with an EDC of 05/22/2020 Placental location: Fundal, os clear Amniotic fluid: TRISHA is 9.1 cm gender is reported as female Calvarial shape, lateral ventricles, cer ebellum appear unremarkable. Nose/lips, face appear unremarkabl e. Four-chamber heart appears unremarkable. stomach, kidneys and urinary bladder appear unremarkable. Three-vessel cord appears unremarkable. Cervical, thoracic and lumbosacral spine s appear unremarkable. Maternal adnexal regions are unremarkabl e. Remainder negative. IMPRESSION 1. Single, live intrauterine gestation w ith the size correlating well with dates. 2. No acute or adverse changes. RL: 1970, for this shift, I can be reach ed at [phone]. Performing Organization Address City/State/Zipcode Phone Number PACS/VR/DOSE documented in this encounter Visit Diagnoses Diagnosis care, subsequent , thi rd trimester Placenta accreta in third trimester Retained placenta without hemorrhage, un specified as to episode of care documented in this encounter Insurance Payer Benefit Plan / Subscriber ID Effective Phone Address T [facility] [id number] 2019-Prese [address] Medic aid HEALTH CHOICE HEALTH CHOICE nt [id number] - MANAGED MEDICAID [place] [address] [facility] [id number] 2020-Prese [phone] [address] PPO/POS nt [id number] [place] [address] documented as of this encounter
[2020-05-22] MEDS ORDERED: Ringers Lactate 1,000 ML IV PRN (04:01)
[2020-05-22] MEDS ORDERED: NA CIT/CITRIC AC 30 ML ORAL UDC PO ONE (04:07)
[2020-05-22] MEDS ORDERED: METHYLERGONOVINE 0.2MG/ML AMP IM ONE (04:15)
[2020-05-22 04:26] VITALS: BMI 43.4
[2020-05-22] MEDS ORDERED: METOCLOPRAMIDE 10 MG/2mL INJ IV SCH (05:00)
[2020-05-22] MEDS ORDERED: Ringers Lactate 1,000 ML IV SCH (05:00)
[2020-05-22] MEDS ORDERED: MORPHINE SULFATE/PF 1 MG/ML (10 ML AMP) ONE (07:18)
[2020-05-22] MEDS ORDERED: EPHEDRINE SULF 50 MG/ML VIAL ONE (07:42)
[2020-05-22] MEDS ORDERED: OXYTOCIN 10 UNIT/ML ML IV ONE ×2 (07:48→07:55)
[2020-05-22] MEDS ORDERED: KETOROLAC 30 MG/ML INJ IM PRN (08:10)
[2020-05-22] MEDS ORDERED: ONDANSETRON 4 MG (ODT) TAB PO PRN (08:10)
[2020-05-22] MEDS ORDERED: ONDANSETRON 4 MG/2 ML VIAL IV PRN (08:10)
[2020-05-22] MEDS ORDERED: IBUPROFEN 200 MG TAB PO PRN (08:10)
[2020-05-22] MEDS ORDERED: DIPHENHYDRAMINE 25 MG TAB/CAP PO PRN (08:10)
[2020-05-22] MEDS ORDERED: ACETAMINOPHEN 500 MG TAB PO PRN ×2 (08:10)
[2020-05-22] MEDS ORDERED: Oxycodone HCl/Acetaminophen 1 TAB TAB PO PRN (08:10)
[2020-05-22] MEDS ORDERED: BISACODYL 10 MG RECTAL SUPP PR PRN (08:10)
[2020-05-22] MEDS ORDERED: KETOROLAC 30 MG/ML INJ IV PRN (08:10)
[2020-05-22] MEDS ORDERED: ONDANSETRON 4 MG/2 ML VIAL ONE (08:14)
[2020-05-22] MEDS ORDERED: FAMOTIDINE 20 MG/2 ML VIAL IV SCH (09:00)
[2020-05-22] MEDS ORDERED: D5LR 1,000 ML with OXYTOCIN 20 UNIT IV SCH ×2 (09:00)
--- NOTE | 2020-05-22 09:15 | OP ---
Surgeon: Bob Connors MD Program Director Scouting: Gibran Montano M.D. Anesthesiologist: Dr. Han. Indications: 25-year-old 2, para 1, for repeat at 39 weeks 1 day. Infection; bloo d loss; anesthetic complications; injury to bladder, bowel, ureter, postop complications were all dis cussed. Patient knows fully well it does not constitute all the possible problems that could occur d uring or following surgery. Anesthesia: Spinal block anesthesia. Description Of Procedure: After prepping and draping, time-out was performed. Pfannenstiel incision then created. Incision was carried to the fascia. Fascia incised and incision carried transversely bilaterally. Anterior and posterior fascial planes were developed with both blunt sharp dissection. The underlying rectus muscles . Peritoneum entered. Low transverse uterine incision crea venus an 8 pounds 4 ounces female delivered without difficulties. Apgars 9 and 9. Cord blood specimen obtained. Placenta removed manually. Uterus cleared of clot and exteriorized. Cervical os dilated with ring clamp. Uterus was noted to be hypotonic, although it was intact, significant amount of bl eeding going on. Nonetheless, patient was given 0.2 mg of Methergine IM and 10 units of Pitocin intr amuscularly into the uterus, which caused the uterus contracted down better. Estimated blood loss du ring the procedure 850-900 cc. Patient was anemic on admission, had been taken iron, but how ___ is uncertain. She has had problem with anemia during the but not of this degree, admis lexis hematocrit 27. Patient remained stable throughout the procedure. The muscles were reapproximat ed using 0 Vicryl. The fascia was closed using 1 PDS from either angle to the midline. Subcutaneous tissue closed with 2-0 plain and katalina used for the skin. She had been given 2 g of Ancef prophyl actically. Tolerated all procedures well. Transferred back to her room in good condition. Final Diagnoses: Term intrauterine 39 weeks 1 day, repeat section, spinal block a nesthesia, mild uterine hypotonus, COVID negative, Rh positive, immune to rubella. ADORE/FLORIANL Voice ID: [id number] Report ID: [id number]
[2020-05-22] MEDS ORDERED: Ringers Lactate 1,000 ML IV ONE (11:06)
[2020-05-22] MEDS: METHYLERGONOVINE 0.2 MG TAB PO PRN ×3 (12:00→20:00)
[2020-05-22] MEDS: OXYTOCIN/LR 20 UNITS/1,000 ML BAG IV SCH (13:10)
[2020-05-22] MEDS ORDERED: CEFAZOLIN 2 GM in NA CHLORIDE 0.9% 100 ML IVPB ONE (16:00)
[2020-05-23] MEDS: METHYLERGONOVINE 0.2 MG TAB PO PRN
[2020-05-23 00:25] LABS: RPR (Rapid Plasma Reagin) NON-REACT (NON-REACT)
[2020-05-23] MEDS: OXYTOCIN/LR 20 UNITS/1,000 ML BAG IV SCH ×3 (03:10→17:00)
[2020-05-23] MEDS: Oxycodone HCl/Acetaminophen 1 TAB TAB PO PRN ×3 (03:20→18:16)
--- NOTE | 2020-05-23 08:17 | PN ---
Postoperatively, has done quite well. H and H with no change. Lochia is normal. Vital signs are al l stable. We will begin ambulation. She has already gotten up in the room. Discontinue Layne and I V. Begin oral intake. Baby is doing well. The patient has had her Tdap shot and flu shots already. No post spinal block problems at this point. If all goes well, patient will be dismissed tomorrow. Full dismissal instructions given to report any temperature elevation of 100 degrees or greater, se ori pain, heavy bleeding, or any other type of abnormalities. We will go over that again tomorrow. ADORE/TIFFANIE Voice ID: [id number] Report ID: [id number]
[2020-05-23] MEDS: MAGNESIUM HYDROXIDE 8% 30 ML PO PRN ×2 (10:15→18:16)
[2020-05-24] MEDS: Oxycodone HCl/Acetaminophen 1 TAB TAB PO PRN ×2 (01:30→07:15)
[2020-05-24] MEDS: MAGNESIUM HYDROXIDE 8% 30 ML PO PRN (07:20)
[2020-05-24 07:32] VITALS: BP 123/66; TEMP 97.8
--- NOTE | 2020-05-24 07:36 | DS ---
Tena Lewis is a 25-year-old 2, para 1, underwent repeat section at 39 weeks 1 d ay with delivery of an 8 pounds 4 ounces female. Apgars 9 and 9. Low transverse uterine incision. Spinal block anesthesia, mild uterine hypertonus, 850-900 cc blood loss. Anemia on admission and con tinuing, but in fact the H and H changed not at all. and postoperatively, afebrile, ambul ating and voiding. Lochia is normal. Her incision looks good. She is dismissed with tramadol for a nalgesia. She knows this goes through the breast milk and she knows that it does tend to constipate people which patient has not had a bowel movement since delivery. We will give her 2 ounces of Milk Of Magnesia today. If she has not had a bowel movement by Friday, she is to call and we will give he r a dose of GoLYTELY. She is Rh positive, immune to rubella, negative COVID. She has had her Tdap i mmunization. She has no post spinal block problems. Full dismissal instructions given. Final Diagnoses: Term intrauterine 39 weeks 1 day, repeat sections, spinal block anesthesia, mild uterine hypotonus, pre-existing anemia. ADORE/FLORIANL Voice ID: [id number] Report ID: [id number]
[2020-05-24 18:59] LABS: HBsAG Nonreactive (Nonreactive)
== END 2020-05-24 08:05 | disposition home or self-care (01) | DRG 788 ==
LOC: 2ND-WC 03:57
PROVIDERS: ADMIT Specialist; ATTEND Specialist
PROC: 10907ZC Drainage of Amniotic Fluid, Therapeutic from Products of Conception, Via Natural or Artificial Opening (ICD-10-PCS; 2020-05-22)
PROC: 10D00Z1 Extraction of Products of Conception, Low, Open Approach (ICD-10-PCS; principal; 2020-05-22 07:30)
DX: O34.211 Maternal care for low transverse scar from previous cesarean delivery (principal); O99.824 Streptococcus B carrier state complicating childbirth; O99.013 Anemia complicating pregnancy, third trimester; O62.2 Other uterine inertia; Z3A.39 39 weeks gestation of pregnancy; Z37.0 Single live birth; Z20.822 Contact with and (suspected) exposure to COVID-19
CPT/HCPCS: 36415; 81003; 81015; 85014; 85025; 85610; 85730; 86592; 86850; 86900; 86901; 87086; 87088; 87340; 88307; J0690; J2210; J2405; J2590; J2765; J7120; J7121; U0003